=== PATIENT | male | born 2000 | race African-American/Black ===

== ENCOUNTER 2019-01-17 12:35 | Emergency (ER) | payer OTHER ==
[2019-01-17] MEDS ORDERED: Amoxicillin/Clavulanate TAB* 875 MG PO ONE (17:08)
--- NOTE | 2019-01-17 17:09 | ED ---
Headache - HPI Summary HPI Summary: 18 year old male presents to the ED with a headache that began 2 weeks ago. Patient reports that the headache is localized on the left side. He denies fever , trauma to the head, and congestion. Patient smokes tobacco, drinks alcohol occasionally, and smokes marijuana occasionally. He has a history of asthma. - History Of Current Complaint Chief Complaint: EDHeadache Stated Complaint: HEADACHE PER PT Time Seen by Provider: 01/17/19 16:41 Hx Obtained From: Patient Onset/Duration: Gradual Onset, Started weeks ago, Still Present Initially Headache Was: Mild Currently Pain Is: Mild Timing: Constant Character: Typical Headache Location of Headache: Other: - left temporal Aggravating Factor: Nothing Allevating Factors: Nothing - Allergies/Home Medications Allergies/Adverse Reactions: Allergies Allergy/AdvReac Type Severity Reaction Status Date / Time No Known Allergies Allergy Verified 01/17/19 12:40 Home Medications: Home Medications LoraTADine TAB(NF) [Claritin 10 MG TAB(NF)] 10 mg PO DAILY 01/17/19 [History Confirmed 01/17/19] Mometasone/Formoter 100/5 MDI* [Dulera 100/5 MDI*] 2 puff INH BID PRN 01/17/19 [ History Confirmed 01/17/19] PMH/Surg Hx/FS Hx/Imm Hx Respiratory History: Reports: Hx Asthma - Surgical History Surgery Procedure, Year, and Place: [id number] EYE MUSCLES SURGERY - Immunization History Immunizations Up to Date: Yes Infectious Disease History: No Infectious Disease History: Denies: Traveled Outside the [place] in Last 30 Days - Family History Known Family History: Positive: Cardiac Disease - Social History Alcohol Use: Weekly Substance Use Type: Reports: Marijuana Smoking Status (MU): Current Some Day Smoker Review of Systems Negative: Fever Negative: Other - congestion Positive: Headache All Other Systems Reviewed And Are Negative: Yes Physical Exam - Summary Physical Exam Summary: Constitutional: Well-developed, Well-nourished, Alert. (-) Distressed Skin: Warm, Dry HENT: Normocephalic; Atraumatic. Left forehead tenderness. Eyes: Conjunctiva normal Neck: Musculoskeletal ROM normal neck. (-) JVD, (-) Stridor, (-) Tracheal deviation Cardio: Rhythm regular, rate normal, Heart sounds normal; Intact distal pulses; Radial pulses are 2+ and symmetric. (-) Murmur Pulmonary/Chest wall: Effort normal. (-) Respiratory distress, (-) Wheezes, (-) Rales Abd: Soft, (-) tenderness, (-) Distension, (-) Guarding, (-) Rebound Musculoskeletal: (-) Edema Lymph: (-) Cervical adenopathy Neuro: Alert, Oriented x3 Psych: Mood and affect Normal Triage Information Reviewed: Yes Vital Signs On Initial Exam: Initial Vitals Temp Pulse Resp BP Pulse Ox 97.1 F 79 16 147/82 98 01/17/19 12:38 01/17/19 12:38 01/17/19 12:38 01/17/19 12:38 01/17/19 12:38 Vital Signs Reviewed: Yes - [place] Coma Scale Best Eye Response: 4 - Spontaneous Best Motor Response: 6 - Obeys Commands Best Verbal Response: 5 - Oriented Coma Scale Total: 15 Procedures - Sedation Patient Received Moderate/Deep Sedation with Procedure: No Diagnostics - Vital Signs Vital Signs Temp Pulse Resp BP Pulse Ox 01/17/19 14:58 97.6 F 60 16 157/80 01/17/19 12:38 97.1 F 79 16 147/82 98 - Laboratory Lab Statement: Any lab studies that have been ordered have been reviewed, and results considered in the medical decision making process. - CT CT brain CT Interpretation Completed By: Radiologist Summary of CT Findings: Imaging features suggestive of acute left frontal sinusitis. An ED physician has reviewed this report. Headache Course/Dx - Course Course Of Treatment: Patient is here with 2 weeks of headache. Patient was sent in for CT scan performed which showed a left frontal sinusitis. Patient was started on Augmentin. 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 Take Tylenol or Motrin for pain. Return to the Emergency Department if you experience new or worsening symptoms. - Billing Disposition and Condition Condition: STABLE Disposition: Home - Attestation Statements Document Initiated by Scribe: Yes Documenting Scribe: Neo Sanchez Provider For Whom Ele is Documenting (Include Credential): Carlton Mosher MD Scribe Attestation: Neo Quintanilla , scribed for Carlton Mosher MD on 01/18/19 at 2009. Scribe Documentation Reviewed: Yes Provider Attestation: The documentation as recorded by the scribeNeo accurately reflects the service I personally performed and the decisions made by , Carlton Mosher MD Status of Scribe Document: Viewed
[2019-01-17 17:20] VITALS: BP 129/68
== END 2019-01-17 17:13 | disposition home or self-care (01) ==
LOC: ED 12:35
DX: J32.9 Chronic sinusitis, unspecified (principal); J45.909 Unspecified asthma, uncomplicated; F17.200 Nicotine dependence, unspecified, uncomplicated; Z79.899 Other long term (current) drug therapy
CPT/HCPCS: 70450; 99282; A9270-GY